=== PATIENT | male | born 1990 | race Caucasian/White ===

== ENCOUNTER 2021-02-10 16:41 | Emergency (ER) | payer SELFPAY ==
[~2021-02-10] VITALS: Ht 165.1 cm; Wt 132.6 kg
--- NOTE | 2021-02-10 17:43 | PHYS DOC ---
Past History Past Medical History: Seizure Past Surgical History: Tonsillectomy, Other Additional Past Surgical Histo: hernia Alcohol Use: Occasionally Drug Use: None General Adult EDM: Chief Complaint: OTHER COMPLAINTS HPI: HPI: Patient is a [age] year old [sex] who presents with [] Review of Systems: Review of Systems: Allergies: Allergies: Allergies Coded Allergies Type Severity Reaction Last Updated Verified No Known Drug Allergies 02/10/21 No Physical Exam: PE: Current Patient Data: Vital Signs: Vital Signs Date Time Temp Pulse Resp B/P (MAP) Pulse Ox O2 Delivery O2 Flow Rate FiO2 02/10/21 17:01 97.9 94 18 139/96 (110) 99 Room Air EKG: EKG: [] Radiology/Procedures: Radiology/Procedures: [] Heart Score: C/O Chest Pain: N/A Course & Med Decision Making: Course & Med Decision Making Pertinent Labs and Imaging studies reviewed. (See chart for details) Dragon Disclaimer: Dragon Disclaimer: This electronic medical record was generated, in whole or in part, using a voice recognition dictation system. Departure Departure: Impression: Primary Impression: Cervical radiculopathy Disposition: HOME / SELF CARE / HOMELESS Condition: STABLE Referrals: SERENA CARUSO MD (PCP) Patient Instructions: Cervical Radiculopathy, [id number] Additional Instructions: Call Dr. Benson Taylor (pain management) for further evaluation and treatment. [id number] [facility], [address] [place] [address] Scripts Prednisone (PREDNISONE) 20 Mg Tablet 1 TAB PO DAILY for Inflammation, #8 TAB Start this prescription tomorrow, Tuesday02/11/21 Prov: CLEMENCIA MONTES DO 02/10/21 Orphenadrine Citrate (ORPHENADRINE CITRATE) 100 Mg Tablet.er 1 TAB PO BID PRN for MUSCLE PAIN, #14 TAB 0 Refills Prov: CLEMENCIA MONTES DO 02/10/21 CLEMENCIA MONTES DO Feb 10, 2021 17:43
[2021-02-10] MEDS ORDERED: DEXAMETHASONE 4 MG TABLET PO ONE (17:45)
[2021-02-10] MEDS ORDERED: IBUPROFEN 600 MG TABLET. PO ONE (17:45)
[2021-02-10] MEDS ORDERED: ORPH-16 PO (17:46)
[2021-02-10] MEDS ORDERED: PRED20TA PO (17:46)
[2021-02-10 18:04] VITALS: BP 145/72
== END 2021-02-10 18:06 | disposition home or self-care (01) ==
LOC: ER 16:41
DX: M54.12 Radiculopathy, cervical region (principal)
CPT/HCPCS: 99283; J8540